=== PATIENT | female | born 1965 | race Caucasian/White ===

== ENCOUNTER 2020-12-02 12:20 | Emergency (ER) | payer BC, MEDICAID ==
[~2020-12-02] VITALS: Ht 160 cm; Wt 61.2 kg
[2020-12-02 12:22] VITALS: BP 127/87
== END 2020-12-02 14:32 | disposition home or self-care (01) ==
LOC: ER 12:20
DX: R51.9 Headache, unspecified (principal)
CPT/HCPCS: 70450; A4565

== ENCOUNTER 2021-01-16 13:07 | Emergency (ER) | payer BC ==
[~2021-01-16] VITALS: Ht 160 cm; Wt 62.2 kg
[2021-01-16] MEDS ORDERED: ASPirin 81 mg TAB PO ONE (13:30)
[2021-01-16] MEDS ORDERED: ONDANSETRON HCL 4 MG/2 ML VIAL IV ONE (13:30)
[2021-01-16] MEDS ORDERED: MORPHINE SULF INJ 2 MG/ML SYRINGE 1ML IV ONE (13:30)
[2021-01-16] MEDS ORDERED: FUROSEMIDE 20 MG/2 ML VIAL IV ONE (13:30)
[2021-01-16 14:05] LABS: Basophils # (auto) 0.1 10 ^3/uL (0-0.2); Basophils % (auto) 0.8 % (0.0-2.0); Eosinophils # (auto) 0 10 ^3/uL (0-0.8); Eosinophils % (auto) 0.3 % (0.0-7.0); Hematocrit 41.5 % (36.0-46.0); Hemoglobin 14.2 g/dL (12.2-16.2); Lymphocytes # (auto) 2.2 10 ^3/uL (0.4-5.4); Lymphocytes % (auto) 23.1 % (10.0-50.0); Mean Corpuscular Hemoglobin 30.2 pg (28.0-32.0); Mean Corpuscular Hgb Conc. 34.1 g/dL (32.0-36.0); Mean Corpuscular Volume 88.6 fL (80.0-100.0); Monocytes # (auto) 0.6 10 ^3/uL (0-1.3); Monocytes % (auto) 6.2 % (0.0-12.0); Neutrophils # (auto) 6.5 10 ^3/uL (1.6-8.6); Neutrophils % (auto) 69.6 % (37.0-80.0); Nucleated Red Blood Cells % 0.1 %; Platelet Count (auto) 290 10^3/uL (140-450); Red Blood Cells 4.68 10^6/uL (4.0-5.20); Red Cell Distribution Width 14.2 % (11.8-14.3); White Blood Cell 9.4 10^3/uL (4.4-10.8)
[2021-01-16 14:25] LABS: Alanine Aminotransferase 30 U/L (13-56); Albumin 4.1 g/dL (3.4-5.0); Anion Gap 13 (5-15); Aspartate Aminotransferase 27 U/L (15-37); Blood Urea Nitrogen 19 mg/dL (7-18); Calcium 9.1 mg/dL (8.5-10.1); Carbon Dioxide 21 mmol/L (21-32); Chloride 104 mmol/L (98-107); GFR African American 107 mL/min; GFR Non-African American 89 mL/min; Glucose 92 mg/dL (74-106); Potassium 3.3 mmol/L (3.5-5.1); Sodium 138 mmol/L (136-145)
[2021-01-16 14:30] LABS: Alkaline Phosphatase 62 U/L (45-117); Bilirubin, Total 1.3 mg/dL (0.2-1.0); Total Protein 7.6 g/dL (6.4-8.2)
[2021-01-16 15:00] VITALS: BP 102/63
[2021-01-16] MEDS ORDERED: POTASSIUM EFFERVESENT TAB 25 MEQ PO ONE (15:00)
== END 2021-01-16 16:19 | disposition home or self-care (01) ==
LOC: ER 13:07
DX: I11.0 Hypertensive heart disease with heart failure (principal); I50.9 Heart failure, unspecified; R07.89 Other chest pain; E87.6 Hypokalemia; Z90.710 Acquired absence of both cervix and uterus
CPT/HCPCS: 36415; 71045; 80053; 83880; 84484; 85025; 93005; 96374; 96375; 99285; J2270; J2405

== ENCOUNTER → 2021-02-24 | Outpatient (CLI) | payer BC ==
[2021-02-24 12:56] LABS: BUN/Creatinine Ratio 26.8; Calcium 9.3 mg/dL (8.5-10.1); Potassium 4.3 mmol/L (3.5-5.1)
== END | disposition home or self-care (01) ==
LOC: LAB 12:23
PROVIDERS: ATTEND Internal Medicine
DX: G89.29 Other chronic pain (principal); E03.9 Hypothyroidism, unspecified
CPT/HCPCS: 36415; 80048; 84443

== ENCOUNTER → 2021-03-16 | Outpatient (CLI) | payer BC ==
[2021-03-16 11:14] LABS: Basophils # (auto) 0 10 ^3/uL (0-0.2); Basophils % (auto) 0.5 % (0.0-2.0); Eosinophils # (auto) 0.1 10 ^3/uL (0-0.8); Eosinophils % (auto) 1.1 % (0.0-7.0); Hematocrit 41.3 % (36.0-46.0); Hemoglobin 14.1 g/dL (12.2-16.2); Lymphocytes % (auto) 29.8 % (10.0-50.0); Mean Corpuscular Hemoglobin 31.3 pg (28.0-32.0); Monocytes # (auto) 0.4 10 ^3/uL (0-1.3); Monocytes % (auto) 6.2 % (0.0-12.0); Neutrophils # (auto) 4.2 10 ^3/uL (1.6-8.6); Neutrophils % (auto) 62.4 % (37.0-80.0); Nucleated Red Blood Cells % 0.1 %; Platelet Count (auto) 284 10^3/uL (140-450); Red Blood Cells 4.49 10^6/uL (4.0-5.20); Red Cell Distribution Width 13.4 % (11.8-14.3); White Blood Cell 6.8 10^3/uL (4.4-10.8)
[2021-03-16 11:32] LABS: Albumin 3.9 g/dL (3.4-5.0); CRP High Sensitivity 0.03 mg/dL (< 0.3); Calcium 9.1 mg/dL (8.5-10.1); Potassium 4.3 mmol/L (3.5-5.1)
[2021-03-16 11:35] LABS: BUN/Creatinine Ratio 21.6; Bilirubin, Total 0.5 mg/dL (0.2-1.0); Total Protein 7.4 g/dL (6.4-8.2)
== END | disposition home or self-care (01) ==
LOC: LAB 10:59
PROVIDERS: ATTEND Student in an Organized Health Care Education/Training Program
DX: M25.511 Pain in right shoulder (principal); M25.551 Pain in right hip; M79.7 Fibromyalgia; G89.29 Other chronic pain
CPT/HCPCS: 36415; 80053; 85025; 85652; 86038; 86141; 86200; 86431